=== PATIENT | male | born 2000 | race Caucasian/White ===

== ENCOUNTER 2023-04-01 07:26 | Emergency (ER) | payer BC ==
[~2023-04-01] VITALS: Ht 182.9 cm; Wt 81.0 kg
[2023-04-01 07:32] VITALS: TEMP 98.1; O2SAT 100
[2023-04-01 08:08] LABS: HEMATOCRIT. 41.9 % (42.0-52.0); HEMOGLOBIN. 14.8 g/dL (14.0-18.0); MEAN CORPUSCULAR HEMOGLOBIN 32.7 pg (28.0-32.0); MEAN CORPUSCULAR HGB CONC 35.3 g/dL (31.0-37.0); MEAN CORPUSCULAR VOLUME 92.8 fL (80.0-94.0); MEAN PLATELET VOLUME 8.5 fl (7.4-10.4); PLATELET 278 x1000/uL (130-400); RED BLOOD CELL COUNT 4.52 mill/uL (4.7-6.1); RED CELL DISTRIBUTION WIDTH 13.7 % (11.6-14.6); WHITE BLOOD COUNT 14.4 x1000/uL (4.5-11.0)
[2023-04-01 08:13] LABS: CLARITY URINE CLEAR (CLEAR); COLOR URINE YELLOW (YELLOW); GLUCOSE URINE NEGATIVE (NEGATIVE); KETONES URINE 4+ (NEGATIVE); LEUKOCYTE ESTERASE URINE NEGATIVE (NEGATIVE); NITRITE URINE NEGATIVE (NEGATIVE); OCCULT BLOOD URINE NEGATIVE (NEGATIVE); PROTEIN URINE 1+ (NEGATIVE); SPECIFIC GRAVITY URINE 1.024 (1.005-1.030); UROBILINOGEN URINE 0.2 E.U./dL (0.2-1.0)
[2023-04-01 08:13] LABS: DIFFERENTIAL COMMENT 1
[2023-04-01 08:16] LABS: CHLORIDE 106 mEq/L (98-107); INDEX HEMOLYSI 1 (1-3); INDEX ICTERIC 1 (1-4); INDEX LIPEMIC 1 (1-3); POTASSIUM 3.3 mEq/L (3.5-5.1); SODIUM 135 mEq/L (136-145)
[2023-04-01 08:16] LABS: YEAST URINE NONE SEEN
[2023-04-01 08:22] LABS: ALANINE AMINOTRANSFERASE 30 IU/L (13-61); ALBUMIN 4.4 g/dL (3.4-5.0); ASPARTATE AMINOTRANSFERASE 24 IU/L (15-37); BILIRUBIN TOTAL 0.7 mg/dL (0.1-1.0); CALCIUM 9.7 mg/dL (8.5-10.1); CARBON DIOXIDE 16 mEq/L (21-32); CREATININE 0.9 mg/dL (0.6-1.3); GLUCOSE 174 mg/dL (70-105); PROTEIN TOTAL 8.7 g/dL (6.0-8.3); UREA NITROGEN BLOOD 15 mg/dL (7-21)
[2023-04-01 08:44] LABS: BACTERIA URINE 1+; WBC URINE 15-25 /hpf (0-2)
[2023-04-01] MEDS ORDERED: KETOROLAC 30MG/ML VIAL IV ONE (08:45)
[2023-04-01] MEDS ORDERED: DICYCLOMINE HCL 10MG/ML 2ML VIAL IM ONE (08:45)
[2023-04-01] MEDS ORDERED: ONDANSETRON HCL 4MG/2ML INJ IV ONE (08:45)
[2023-04-01] MEDS ORDERED: DEXT 5%/0.9% NACL KCL 20MEQ/L 1,000 ML IV ONE (08:45)
[2023-04-01] MEDS ORDERED: FAMOTIDINE 20MG/2ML VIAL IV ONE (08:45)
[2023-04-01 08:46] LABS: HYALINE CASTS URINE 0-5 /lpf; SQUAMOUS EPITHELIAL CELL URINE NONE SEEN /lpf (RARE/1+)
[2023-04-01 08:59] LABS: PLATELET ESTIMATE NORMAL
[2023-04-01 09:44] VITALS: BP 144/102; PULSE 98; RESP 20
[2023-04-01] MEDS ORDERED: ONDA4TAB11 PO (10:43)
== END 2023-04-01 11:03 | disposition home or self-care (01) ==
LOC: ER 08:14
DX: R11.2 Nausea with vomiting, unspecified (principal); Z88.2 Allergy status to sulfonamides
CPT/HCPCS: 99284; 96365; 96375; 80053; 81003; 85025; 87086; 36415; J0500; J3490; J1885; J2405

== ENCOUNTER 2024-04-05 06:21 | Emergency (ER) | payer BC ==
[~2024-04-05] VITALS: Ht 188 cm; Wt 91.0 kg
[~2024-04-05 06:21] MED LIST: ONDA4TAB11 PO
[2024-04-05 06:31] VITALS: BP 149/94; PULSE 90; RESP 20; TEMP 97.9; O2SAT 100
== END 2024-04-05 07:00 | disposition left against medical advice (07) ==
LOC: ER 06:21
DX: R11.10 Vomiting, unspecified (principal); Z53.21 Procedure and treatment not carried out due to patient leaving prior to being seen by health care provider